=== PATIENT | female | born 1995 | race Caucasian/White ===

== ENCOUNTER 2023-11-27 08:22 | Outpatient (CLI) | payer BC, SELFPAY ==
--- NOTE | ~2023-11-27 | US_ITS ---
COMPLETE ABDOMINAL ULTRASOUND Ordering provider: William Ho APRN History: . R10.11 - Right upper quadrant pain . Comparison: None. FINDINGS: LIVER: Normal size and echotexture. No focal hepatic lesions or perihepatic fluid collections are melba ntified. Portal vein flow is normal. GALLBLADDER: Cholelithiasis. No evidence for sludge or pericholecystic fluid collections. The wall th ickness is 3.4 mm. A negative sonographic Back's sign was noted. BILIARY DUCTS: No evidence for intra or extrahepatic biliary dilation. Common bile duct measures 3 mm in diameter which is within normal limits. PANCREAS: Partially demonstrated with no definite abnormality. FREE FLUID: None. IMPRESSION: Cholelithiasis with slightly thickened wall of the gallbladder. Clinical evaluation for cholecystitis advised. Reviewed, dictated and finalized at location A. IMPRESSION: Cholelithiasis with slightly thickened wall of the gallbladder. Clinical evalua tion for cholecystitis advised.
== END 2023-11-27 08:23 | disposition home or self-care (01) ==
LOC: GOSHIMG 08:24
PROVIDERS: PCP Student in an Organized Health Care Education/Training Program; Visit Provider Student in an Organized Health Care Education/Training Program
DX: K80.20 Calculus of gallbladder without cholecystitis without obstruction (principal)
CPT/HCPCS: 76705

== ENCOUNTER 2023-11-27 08:51 | Outpatient (CLI) | payer BC, SELFPAY ==
[2023-11-27 13:48] LABS: Vitamin D 25 Hydroxy 29.4 ng/mL
[2023-11-27 13:59] LABS: Anion Gap 8 mmol/L (4-12); Blood Urea Nitrogen 10 mg/dL (7-17); Calcium 8.7 mg/dL (8.4-10.2); Carbon Dioxide 27 mmol/L (22-30); Chloride 104 mmol/L (98-107); Estimated Glomerular Filt Rate > 60; Glucose 84 mg/dL (65-110); Sodium 139 mmol/L (137-145)
[2023-11-27 15:10] LABS: Hemoglobin A1C 4.9 % (<5.7)
== END 2023-11-27 08:52 | disposition home or self-care (01) ==
LOC: ANHGOSHLAB 08:53
PROVIDERS: PCP Student in an Organized Health Care Education/Training Program; Visit Provider Student in an Organized Health Care Education/Training Program
DX: R63.1 Polydipsia (principal); R35.0 Frequency of micturition; R20.2 Paresthesia of skin; R53.83 Other fatigue
CPT/HCPCS: 36415; 80048; 82306; 82607; 83036

== ENCOUNTER 2023-12-31 17:30 | Emergency (ER) | payer BC, SELFPAY ==
--- NOTE | ~2023-12-31 | US_ITS ---
EXAMINATION: US abdomen limited DATE: 12/31/2023 19:27 INDICATION: Abdominal pain. Nausea and vomiting. TECHNIQUE: Multiple grayscale and Doppler ultrasound images of the abdomen were obtained. COMPARISON: Ultrasound 11/27/2023 FINDINGS: The visualized portions of the head of the pancreas are normal. The liver is normal without focal lesion. There is normal flow in main portal vein. The gallbladder is distended. No gallstones or gallbladder wall thickening. There is a positive sonographic Back's sign. The common duct is nor mal and measures 5 mm. IMPRESSION: 1. Gallbladder distention and positive sonographic Back sign, but no gallbladder wall thickening or visible gallstones. These findings are indeterminate for acute cholecystitis. Consider hepatobiliary scintigraphy. Reviewed, dictated and finalized at location A. IMPRESSION: 1. Gallbladder distention and positive sonographic Back sign, but no gallblad lana wall thickening or visible gallstones. These findings are indeterminate for acute cholecystitis. Consider hepatobiliary scintigraphy.
[2023-12-31 17:40] VITALS: BP 146/95; PULSE 84; RESP 20; TEMP 36.8; O2SAT 98
[2023-12-31 18:20] LABS: BEDSIDEPREGUCG Negative (Negative)
[2023-12-31 18:30] LABS: Basophils Absolute Auto 0.1 K/mm3 (0.0-0.1); Basophils Percent Auto 0.5 % (0.2-1.2); Eosinophils Percent Auto 0.3 % (0-4.4); Hematocrit 41.1 % (37.0-47.0); Hemoglobin 14.8 g/dL (12.0-15.0); Immature Granulocyte Absolute 0.03 K/mm3 (0.00-0.031); Immature Granulocyte Percent A 0.3 % (0-0.5); Lymphocytes Absolute Auto 1.49 K/mm3 (0.9-3.2); Lymphocytes Percent Auto 15.5 % (18.3-44.2); Mean Corpuscular Hemoglobin 31.1 pg (26-34); Mean Corpuscular Volume 86.3 fl (80-100); Mean Platelet Volume 12.2 fl (7.4-10.4); Monocytes Absolute Auto 0.6 K/mm3 (0.1-0.6); Monocytes Percent Auto 6.6 % (2.6-8.5); Neutrophils Absolute Auto 7.4 K/mm3 (1.3-6.7); Neutrophils Percent Auto 76.8 % (45.5-73.1); Platelet Count Result 245 k/mm3 (150-375); Red Blood Count 4.76 M/mm3 (4.2-5.4); Red Cell Distribution Width 12.3 % (11.5-14.5); White Blood Count 9.6 K/mm3 (4.5-10.0)
--- NOTE | 2023-12-31 18:41 | ED.ABDPAIN ---
HPI - Abdominal Pain General Chief Complaint: Abdominal Pain Stated Complaint: RUQ ABD PAIN, SURGERY SCHEDULED 01/10 Time Seen by Provider: 12/31/23 18:23 Source: patient Mode of arrival: ambulatory Limitations: no limitations History of Present Illness HPI narrative: Patient is a 28-year-old female who presents to the ED with report of RUQ abdominal pain. Patient reports history of cholelithiasis and is scheduled to have her gallbladder removed on 01/[address] Armstrong. States she has had recurrent episodes of right upper quadrant pain, however today pain has been more severe and longer lasting than usual. She had a turkey sandwich around noon today and developed the pain around 1:00 p.m.. Has been persistent since then. She tried taking ibuprofen without improvement. Reports nausea, vomiting. Denies fevers. Denies urinary complaints. Related Data Home Medications Medication Instructions Recorded Confirmed loratadine 10 mg tablet (Claritin) 10 mg PO DAILY 10/04/23 12/25/23 fluoxetine 20 mg capsule (Prozac) 20 mg PO DAILY 12/19/23 12/25/23 Allergies Allergy/AdvReac Type Severity Reaction Status Date / Time adhesive Allergy Unknown Unknown Verified 12/20/23 14:35 Review of Systems Review of Systems: All systems reviewed & are unremarkable except as noted in HPI. All systems reviewed & are unremarkable except as noted in HPI and below PMFSH Past Medical History Medical History Anxiety Asthma Nausea and vomiting Seasonal allergies Surgical History Surgical History History of tonsillectomy and adenoidectomy Family History Family History Mother Depression Sibling Depression Grandparent Cancer Diabetes mellitus Social History Social History Smoking status: Never smoker Do You Feel Safe in your Home?: Yes Lack of Transportation: No Lack of Food: Never True Current Housing: I Have Housing Concerned About Future Housing: No Difficulty Paying Gas/Electric Bills: Decline to Answer Difficulty Paying for Meds: YES Currently Unemployed: No Education: Associate Degree Difficulty w/ Childcare or Family Care: No Living arrangements: alone Exam Narrative: GENERAL: Mildly uncomfortable appearing, well-nourished, non-toxic, in no acute distress. HEAD: Normocephalic, atraumatic. RESPIRATORY: Airway patent, respirations nonlabored. Clear to auscultation bilaterally, no rales, rhonchi, wheezing. CARDIOVASCULAR: Regular rate and rhythm without murmurs, rubs, or gallops. ABDOMINAL: Soft, focal tenderness in right upper quadrant, no rebound. Nondistended. Normoactive BS. MUSCULOSKELETAL: Moves all extremities. No gross deformities. SKIN: Warm, dry, normal color. NEURO: A&O X3. Speech clear. PSYCHIATRIC: Appropriate mood and affect. Normal interaction. Course Vital Signs Vital signs: Vital Signs Temperature 98.3 F 12/31/23 17:40 Pulse Rate 84 12/31/23 17:40 Respiratory Rate 20 12/31/23 17:40 Blood Pressure 146/95 H 12/31/23 17:40 Pulse Oximetry 98 12/31/23 17:40 Oxygen Delivery Room Air 12/31/23 17:40 Temperature 98.6 F 12/31/23 19:40 Pulse Rate 77 12/31/23 19:40 Respiratory Rate 14 12/31/23 19:40 Blood Pressure 165/111 H 12/31/23 19:40 Pulse Oximetry 100 12/31/23 19:40 Oxygen Delivery Room Air 12/31/23 17:40 MDM - Abdominal Pain MDM Narrative Medical decision making narrative: Patient presented to ED with worsening right upper quadrant abdominal pain. History of cholelithiasis, scheduled for cholecystectomy in 11 days. Vital signs are stable upon arrival. Afebrile. Denies fevers at home. Patient is in no acute distress, though does appear mildly uncomfortable appearing. Cbc witho
[2023-12-31 18:44] LABS: Add Urine Microscopic? YES; Appearance Urine Turbid (Clear); Bacteria Urine 1+ /hpf; Bilirubin Urine Negative (Negative); Blood Urine Negative (Negative); Color Urine Yellow (Yellow); Glucose Urine UA Negative (Negative); Ketones Urine Negative (Negative); Leukocyte Esterase Ur 1+ LEU/UL (Negative); Need Manual Microscopic Reviewed; Nitrate Urine Negative (Negative); Non Pathogenic Casts 0-2; Protein Urine Trace mg/dL (Negative); Specific Grav Ur 1.026 (1.001-1.035); Squamous Epithelial Cell Urine Moderate /hpf (Few); WBC Urine 0-5 /hpf (0-3)
[2023-12-31 18:47] LABS: Alanine Aminotransferase 18 U/L (6-35); Albumin Level 4.3 g/dL (3.5-5.1); Alkaline Phosphatase 52 U/L (38-126); Anion Gap 9 mmol/L (4-12); Aspartate Amino Transferase 22 U/L (14-36); Bilirubin,Total 0.5 mg/dL (0.2-1.3); Blood Urea Nitrogen 9 mg/dL (7-17); Calcium 9.1 mg/dL (8.4-10.2); Carbon Dioxide 24 mmol/L (22-30); Chloride 105 mmol/L (98-107); Estimated Glomerular Filt Rate > 60; Glucose 114 mg/dL (65-110); Lipase 95 U/L (23-300); Potassium 3.7 mmol/L (3.4-5.0); Sodium 138 mmol/L (137-145)
[2023-12-31] MEDS: SODIUM CHLORIDE 0.9% IV 1,000 ML 999 ML IV CONT (18:50)
[2023-12-31] MEDS: MORPHINE SULFATE (*CRX) 4 MG/ML INJ IV PUSH (18:50)
[2023-12-31] MEDS: ONDANSETRON INJ 4 MG/2 ML VIAL IV PUSH (18:50)
[2023-12-31 19:40] VITALS: BP 165/111; PULSE 77; RESP 14; TEMP 37; O2SAT 100
[2023-12-31] MEDS: HYDROmorphone HCL INJ (*CRX) 1 MG/ML SYR 0.5 MG IV PUSH (20:05)
[2023-12-31] MEDS: FAMOTIDINE 20 MG/2 ML VIAL IV PUSH (20:32)
[2023-12-31] MEDS: HYDROcodone/acetaminophen (*CRX) 5-325 MG TABLET 1 TAB PO (21:17)
== END 2023-12-31 21:30 | disposition home or self-care (01) ==
PROVIDERS: Emergency Medicine; Emergency Provider Physician Assistant; PCP Student in an Organized Health Care Education/Training Program
DX: K80.20 Calculus of gallbladder without cholecystitis without obstruction (principal); J45.909 Unspecified asthma, uncomplicated; F41.9 Anxiety disorder, unspecified
CPT/HCPCS: 36415; 76705; 80053; 81001; 81025; 83690; 85025; 87086; 96361; 96374; 96375; 99284; A9270; J1171; J2270; J2405; J7030

== ENCOUNTER 2024-01-07 16:06 | Outpatient (CLI) | payer BC, SELFPAY ==
[2024-01-07 16:50] LABS: Amylase 69 U/L (30-110)
== END 2024-01-07 16:07 | disposition home or self-care (01) ==
LOC: ANHLAB 16:07
PROVIDERS: PCP Student in an Organized Health Care Education/Training Program; Visit Provider Surgery
DX: K80.10 Calculus of gallbladder with chronic cholecystitis without obstruction (principal); Z01.818 Encounter for other preprocedural examination
CPT/HCPCS: 36415; 82150

== ENCOUNTER 2024-01-11 00:46 | Day surgery (SDC) | payer BC, SELFPAY ==
[2024-01-04 14:11] VITALS: BMI 37.3
--- NOTE | 2024-01-04 14:17 | PC.NURSE ---
Report to the Outpatient Waiting Room, entrance under the green pavilion located off [facility], at time _0800_ on date _[id number]_. Planned Procedure Time: _1000_.? Time changes happen often and if your time is changed the preop area will call you the afternoon before. - You and your visitor will be asked to self-screen and do not enter if you have any COVID symptoms. Please call surgeon if you need to reschedule. - A mask is optional within the hospital at this time. Patients may have clear liquids (water, carbonated beverages, clear teas, apple juice) until 3 hours prior to surgery with a maximum of 20 ounces. - No food from midnight until time of surgery and no smoking Take only the following medications with a SIP of water on the morning of surgery: ___Fluoxetine and if needed pain med, nausea med and or inhaler if needed.____ DO NOT STOP ANY OF YOUR OTHER PRESCRIPTION MEDICATIONS PRIOR TO SURGERY EXCEPT THE FOLLOWING Medications to discontinue per physician None Please no make-up, nail arabic, hairspray, perfume, deodorant, or body powder the day of surgery.? No jewelry (including any body piercings) or valuables the day of surgery, leave them at home.? Please take a shower or bath the night before, or the morning of, surgery with an antibacterial soap.? Wear comfortable, loose fitting clothing.? - Jewelry must be removed prior to entering the operating room.? Rings and piercings that are not removed may be cut off. - The hospital will not accept responsibility for valuables.? - Please leave all valuables, including medications, at home the day of surgery. If you are going home after surgery, a licensed tractor sweeper driver must drive you home.? - NO public transportation without another adult if you receive anesthesia. - We recommend that an adult stay with you for 24 hours following discharge. - We also recommend that you do not drive, make important decision, drink alcoholic beverages, or take any drugs that were not prescribed by your health care provider for at least 24 hours after your discharge time. Follow any additional instructions given to you from your surgeon. Telephone instructions given to __Rocio__and asked if any additional questions and then verbalized understanding. Patient advised to call surgeon office or pre surgery nurse liaison [phone] if any additional questions.
[2024-01-11] VITALS (10 sets, daily range): BP systolic 112–133; BP diastolic 59–82; PULSE 72–98; RESP 12–19; TEMP 36.7; O2SAT 97–100; BMI 37.4
[2024-01-11 08:36] LABS: BEDSIDEPREGUCG Negative (Negative)
[2024-01-11] MEDS: ACETAMINOPHEN 500 MG TABLET 1000 MG PO (08:53)
[2024-01-11] MEDS: LACTATED RINGERS 1,000 ML 30 ML IV CONT ×2 (08:53→11:48)
[2024-01-11] MEDS: KETOROLAC 15 MG/ML VIAL (*BKC) IV PUSH ×2 (08:53→11:21)
--- NOTE | 2024-01-11 09:49 | P.PNAN_ITS ---
Anes - Initial Pre Proc Eval Procedure: Operation Date: 01/11/24 10:00 Proposed Procedures p Laparoscopic Cholecystectomy, Possible Open - Ezio Armstrong MD Date/Time: 01/11/24 09:49 Surgeon: Ezio Armstrong MD Pre Op Diagnosis: chronic cholecystitis secondary gallstones Patient Data Age: 28 Gender: F Height: 1.7 m Weight: 108.5 kg Last Vital Signs Temp 98.1 F 01/11/24 08:55 Pulse 81 01/11/24 08:55 BP 133/81 01/11/24 08:55 Pulse Ox 98 01/11/24 08:55 O2 Del Method Room Air 01/11/24 08:55 Allergies Allergy/AdvReac Type Severity Reaction Status Date / Time adhesive Allergy Unknown Unknown Verified 01/04/24 14:10 Home Medications Medication Instructions Recorded Confirmed Type albuterol sulfate 90 mcg/actuation 1 puff inhalation Q4H PRN 10/04/23 01/04/24 Rx aerosol inhaler shortness of breath or wheezing #8.5 grams loratadine 10 mg tablet (Claritin) 10 mg PO DAILY 10/04/23 01/04/24 History fluoxetine 20 mg capsule (Prozac) 20 mg PO DAILY 12/19/23 01/04/24 History hydrocodone 5 mg-acetaminophen 325 1 tablet PO Q6H PRN pain #15 tabs 12/31/23 01/04/24 Rx mg tablet ondansetron 4 mg disintegrating 4 mg PO Q8H PRN nausea and 12/31/23 01/04/24 Rx tablet vomiting #15 tabs Laboratory Tests 01/11/24 08:33 POC Urine HCG, Qual Negative (Negative) Patient hx anesthesia problems: post op nausea/vomiting Family hx anesthesia problems: none Results Review: All pre-operative results and documents have been reviewed as part of the pre- operative evaluation. [facility] Past Medical History Medical History Anxiety Asthma Nausea and vomiting Seasonal allergies Surgical History Surgical History History of tonsillectomy and adenoidectomy Family History Family History Mother Depression Sibling Depression Grandparent Cancer Diabetes mellitus Social History Social History Smoking status: Never smoker Alcohol intake: current Do You Feel Safe in your Home?: Yes Lack of Transportation: No Lack of Food: Never True Current Housing: I Have Housing Concerned About Future Housing: No Difficulty Paying Gas/Electric Bills: Decline to Answer Difficulty Paying for Meds: YES Currently Unemployed: No Education: Associate Degree Difficulty w/ Childcare or Family Care: No Living arrangements: with family Spiritual care concerns: No Anes - Eval Final PreProcedure Day of Procedure 01/11/24 09:49 Patient weight: obese Heart: regular rate and rhythm Lungs: clear to auscultation Airway: Mallampati scale class II Neurological: alert and oriented Last oral intake: >/= 8 hours ASA classification: II Emergent: no Anesthetic plan: proceed Anesthesia type and monitoring: general ETT and standard monitoring Results Review: All pre-operative results and documents have been reviewed as part of the pre- operative evaluation. Informed Consent: The patient's anesthetic plan and its attendant risks and benefits were discussed with the patient/family/POA. Questions were solicited and answers provided to the satisfaction of the patient/family/POA.
[2024-01-11] MEDS: SCOPOLAMINE 1 MG PATCH 1 PATCH TRANSDERM (10:00)
--- NOTE | 2024-01-11 10:16 | WPDHPUPDATE1 ---
History and Physical Update Update Date/Time: 01/11/24 10:16 History and Physical has been reviewed, including an updated exam of the patient. There are NO changes in the patient's condition. Risks, benefits, and alternatives have been discussed and questions answered. Patient agrees to proceed with procedure.
[2024-01-11] MEDS: ceFAZolin 2 GM/D5W 50 ML 2 GM/50 ML BAG IVPB (10:24)
[2024-01-11] MEDS: BUPivacaine HCL 0.5% PF 30 ML VIAL INFILTRATE (10:24)
[2024-01-11] MEDS: LIDO 1%/EPINEPHRINE 1:100,000 50 ML VIAL 30 ML INFILTRATE (10:24)
--- NOTE | 2024-01-11 11:40 | P.OP_ITS ---
Procedure Note - Detailed Date of Procedure 01/11/24 Pre-op Diagnosis Symptomatic cholelithiasis Post-op Diagnosis Same Procedure Performed Laparoscopic cholecystectomy Surgeon Ezio Armstrong MD Anesthesia General Indications Patient is a 28-year-old female who presents for plates of right upper quadrant abdominal pain especially worse after eating certain foods. Imaging shows at least 1 gallstone within the gallbladder. She presents now for elective laparoscopic cholecystectomy. Findings Patient had some minimal inflammation the gallbladder with only 1 small thin adhesion of the omentum to the gallbladder wall. The gallbladder wall was only minimally thickened. It was very supple and looked mostly normal. A gallstone was palpated within the gallbladder was sent to pathology Description of Procedure After informed consent was obtained patient brought to the operating room she was placed supine position and general endotracheal anesthesia was administered. The abdomen was then prepped and draped usual sterile fashion. A time-out was then performed correctly identifying the patient as well as procedure to be performed verifying she was given perioperative IV antibiotics. I then proceeded into the abdomen left upper quadrant utilizing a 5mm Optiview port. Once inside the abdomen insufflated to adequate pneumoperitoneum of 15mmHg of CO2. There were no adhesions around the area the umbilicus I placed a 5mm periumbilical trocar port and then placed an epigastric 10mm trocar port and 2 more right lateral subcostal 5mm trocar ports all under direct visualization. The gallbladder was visualized right upper quadrant. It is mildly distended. The gallbladder was held laparoscopic grasper and elevated over the right half liver towards the right shoulder. There was a single adhesion of the omentum to the gallbladder wall which was somewhat filmy and easily taken down with blunt dissection utilizing a [place] dissected. A 2nd grasper was then used to hold the gallbladder at the infundibulum. I then proceeded to dissect down on the infundibular wall of the gallbladder stripping down the visceral peritoneum. Identified the cystic duct and this was dissected out circumferentially. The cystic artery was identified and dissected out circumferentially as well. Posterior wall the gallbladder at the infundibulum dissected free liver into the critical view was obtained. I then placed 2 clips proximally cystic duct and 2 clips distally high on infundibular gallbladder. The cystic duct was then divided Endo Coco. In a similar fashion the cystic artery was then clipped an d divided as well. The gallbladder was resected off the liver electrocautery. Once it was completely free from liver is placed into an Endo-Catch bag and brought out through the epigastric port site. The gallbladder and the gallstone within were sent to pathology for examination. I then irrigated out the right upper quadrant the abdomen the gallbladder fossa with sterile saline solution. Hemostasis was excellent. I then aspirated the fluid from the right upper quadrant the abdomen from the pelvis. I then removed all the trocar ports under visualization all port sites appeared hemostatic. I then allowed the abdomen decompressed. I then closed the epigastric 10mm trocar port fascial defect utilizing 0 Vicryl suture. The skin edges in all the port sites were then approximated utilizing a running subcuticular 4 Monocryl suture. The incisions were then cleaned the skin glue sterile dressings were applied. The patient tolerated the procedure well no complications. All sponges, needles, and instrument counts were correct at the end procedure. EBL was _10__cc. The patient was awakened and taken to recovery in stable and satisfactory condition. Implants None Estimated Blood Loss 10 Drains No Packing No Complications No immediate complications Condition Stable Disposition PACU [facility] Billing Surgery - Charge Forward: Surgery Billing
[2024-01-11] MEDS: fentaNYL CITRATE INJ (*CRX) 100 MCG/2 ML VIAL 25 MCG IV PUSH ×8 (11:55→12:45)
[2024-01-11] MEDS: ONDANSETRON INJ 4 MG/2 ML VIAL IV PUSH (13:18)
[2024-01-11] MEDS: oxyCODONE HCL (*CRX) 5 MG TAB IR PO (13:22)
== END 2024-01-11 14:14 | disposition home or self-care (01) ==
PROVIDERS: PCP Student in an Organized Health Care Education/Training Program; Visit Provider Surgery
PROC: 0FT44ZZ Resection of Gallbladder, Percutaneous Endoscopic Approach (ICD-10-PCS; CPT 47562; principal; 2024-01-11 10:00)
DX: K80.10 Calculus of gallbladder with chronic cholecystitis without obstruction (principal); K66.0 Peritoneal adhesions (postprocedural) (postinfection); F41.9 Anxiety disorder, unspecified; J45.909 Unspecified asthma, uncomplicated; E66.9 Obesity, unspecified; Z68.37 Body mass index [BMI] 37.0-37.9, adult; Z79.51 Long term (current) use of inhaled steroids; Z79.891 Long term (current) use of opiate analgesic; Z98.890 Other specified postprocedural states; Z80.9 Family history of malignant neoplasm, unspecified
CPT/HCPCS: 47562; 88304; A9270; J0690; J1100; J1171; J1596; J1885; J2003; J2004; J2250; J2405; J2704; J3010; J7120

== ENCOUNTER 2024-06-04 08:09 | Outpatient (CLI) | payer BC, SELFPAY ==
--- OUTSIDE RECORDS SUMMARY | 2024-06-04 08:20 | XMS_ITS | Clinical Summary ---
Author Organization [facility] Address [address] [facility] [address] [place] [address] Care Team Providers Care Scratch Brusher Name Role Phone Gabriel Emerson DO Primary Care Provider [phone] Allergies Active Allergy Reactions Criticality Noted Date Comments Adhesive Rash Low 09/10/2012 Coconut Hives,Rash,Itching High 05/18/2023 Medications ibuprofen (MOTRIN) 800 mg tablet Take 1 Tablet (800 mg) by mouth every 8 hours as needed for Pain, Mild. 90 Tablet 1 4 Active FLUoxetine (PROzac) 20 mg capsule take 1 capsule by mouth once daily in the morning 4 Active fluconazole (Diflucan) 150 mg tablet Take 1 Tablet (150 mg) by mouth see administration instructions. Take one pill today; may repeat dose in 4 days if symptoms persist. 2 Tablet 4 Active Active Problems Problem Noted Date Diagnosed Date Elevated liver enzymes 08/02/2020 Gastroesophageal reflux disease 08/02/2020 Migraine with aura and witho ut status migrainosus, not intractable 06/02/2020 Generalized anxiety disorder 06/02/2020 IUD (intrauterine device) in place - Mirena 07/2018 Overview (01/21/2019): Due for removal 01/22/24 Morbid obesity with body mass index of 40.0-49.9 11/13/2018 MTHFR mutation 01/15/2018 Pain in thoracic spine 01/04/2010 Resolved Problems Problem Noted Date Diagnosed Date Resolved Date Spontaneous vaginal delivery 11/13/2018 12/24/2018 Encounter for induction of labor 11/12/2018 11/13/2018 Gestational hypertension 11/12/201810/2018 Threatened labor at term 10/31/201807/2018 Hyperemesis complicating pre gnancy, antepartum 04/30/2018 12/24/2018 Supervision of normal 04/02/2018 12/24/2018 Obesity in , antepartum 04/16/2013 12/24/2018 Decreased movements in third trimester 12/24/2018 Leukorrhea, vaginal, noninfectious 12/24/2018 uterine contractions in third trimester, antepartum 12/24/2018 Encounters Date Type Department Care Team Description 05/24/2024 External Device Data [facility] ABSTRACTION Provider, Abstract 05/23/2024 External Device Data [facility] ABSTRACTION Provider, Abstract 05/20/2024 External Device Data [facility] ABSTRACTION Provider, Abstract 05/06/2024 External Device Data [facility] ABSTRACTION Provider, Abstract 04/10/2024 External Device Data [facility] ABSTRACTION Provider, Abstract 04/09/2024 External Device Data [facility] ABSTRACTION Provider, Abstract 04/08/2024 External Device Data [facility] ABSTRACTION Provider, Abstract from Last 3 Months Immunizations Immunization Administration Dates Next Due (ADACEL/BOOSTRIX)(10 YR UP) TDAP VACCINE, 0.5ML, IM 09/24/2018,04/16/2009 (GARDASIL)(9-45 YRS) HUMAN PAPILLOMAVIRUS VACCINE, TYPES 6, 11, 16, 18, QUADRIVALENT (4VHPV), 3 DOSE, IM 07/07/2008,02/19/2008,11/14/2007 (HAVRIX/VAQTA)(19 YRS UP) HE PATITIS A VACCINE ADULT DOSAGE 1 ML IMM 09/10/2012 (INFANRIX)(6 WKS-6 YRS) DIPT HERIA, TETANUS TOXOIDS, AND ACCELLULAR PERTUSSIS VACCINE (DTAP), 0.5 ML IM 07/17/1996,05/22/1996,01/31/1996,12/03 (IPOL)(6 WKS AND UP) POLIOVI CLAIR VACCINE, INACTIVATED (IPV), 3 DOSE, SUBCUT OR IM 07/17/1996,05/22/1996,01/31/1996,12/03 (M-M-R II/PRIORIX)(12 MO UP) MEASLES, MUMPS AND RUBELLA VIRUS VACCINE, 0.5 ML IM/SUBCUT 12/11/2000,12/04/1996 (SPIKEVAX) (12 YRS UP PRIMAR Y SERIES) COVID-19 VACCINE - MRNA-1273(PF) 100 MCG/0.5 ML IM SUSP 06/24/2020,05/26/2020 (VARIVAX)(12 MOS UP)VARICELL A VIRUS VACCINE (PF) 0.5 ML, SUB CUT 10/12/2011,12/11/2000 HIB, Unspecified Formulation 07/17/1996, 05/22/1996,01/31/1996,12/03 Hepatitis A Vaccine 09/10/2012,10/12/2011 Hepatitis B Vaccine 07/07/2008,02/19/2008,2007 Human Immune Globulin IM 05/22/1996,01/31/1996,0 1995 INFLUENZA VACCINE QUADRIVALE NT 6 MOS UP PF IM 04/02/2018 Influenza Seasonal Unspecifi ed Formulation IM 12/18/2019,01/08/2012 Influenza Vaccine Split 3+ Yrs IM 12/24/2013 Meningococcal A Conjugate Vaccine IM 09/10/2012 Meningococcal ACWY Vaccine, Unspecified Formulation 09/10/2012,10/12/2011 Skin Test TB 04/15/2017, 6,12/22/2013,12/15,12/03/2013 Family History Medical History Relation Name Comments Healthy Brother Healthy Father Kaleb oneill High Cholesterol Father Kaleb oneill Cancer Maternal Grandmother Ken Liver c ancer, cervical Healthy Mother Healthy Sister Breast Cancer Neg Hx Colon Cancer Neg Hx Ovarian Cancer Neg Hx Relation Name Status Comments Brother Alive Father Kaleb oneill Alive Maternal Grandmother Ken Mother Alive Sister Alive Social History Tobacco Use Types Packs/Day Years Used Date Smoking Tobacco: Never Passive Smoke Exposure: Never Smokeless Tobacco: Never Tobacco Cessation:Counseling Given: No Alcohol Use Standard Drinks/Week Comments Yes 1 (1 standard drink = 0.6 oz pur e alcohol) Occasionally Feeling Safe Answer Date Recorded Within the last year, have y ou been afraid of your partner or ex-partner? No 11/12/2018 Within the last year, have y ou been humiliated or emotionally abused in other ways by your partner or ex-partner? No Within the last year, have y ou been kicked, hit, slapped, or otherwise physically hurt by your partner or ex-partner? No 11/12/2018 Within the last year, have y ou been raped or forced to have any kind of sexual activity by your partner or ex-partner? No 11/12/2018 Social Connections Answer Date Recorded In a typical week, how many times do you talk on the phone with family, friends, or neighbors? Three times a week 11/13/19 19 How often do you get togethe r with friends or relatives? Once a week 11/12/2018 How often do you attend chur or congregational services? Never 11/12/2018 Do you belong to any clubs o r organizations such as yazidi groups, unions, fraternal or athletic groups, or school groups? No 11/12/2018 How often do you attend meet ings of the clubs or organizations you belong to? Never 11/12/2018 Are you , , di vorced, , never , or living with a partner? Living with partner 11/12/2018 Financial Resource Strain Answer Date R ecorded How hard is it for you to pa y for the very basics like food, housing, medical care, and heating? Not hard at all 11/12/2018 Food Insecurity Answer Date Recorded Within the past 12 months, y ou worried that your food would run out before you got the money to buy more. Never true 11/13/19 19 Within the past 12 months, t he food you bought just didn't last and you didn't have money to get more. Never true 11/12/2018 Transportation Needs Answer Date Record ed In the past 12 months, has l ack of transportation kept you from medical appointments or from getting medications? No 10/18 In the past 12 months, has l ack of transportation kept you from meetings, work, or from getting things needed for daily living? No 11/12/2018 Education Answer Date Recorded What is the highest level of school you have completed or the highest degree you have received? Bachelor's degree (e.g., BA, AB, BS) 11/12/2018 Comments No Sex and Gender Information Value Date Recorded Sex Assigned at Not on file Legal Sex Female 4:30 AM PRODUCTION ASSOCIATE Gender Identity Not on file Sexual Orientation Not on file Occupation Industry Job Start Date Job End Date Not on file Not on file Not on file Not on file Last Filed Vital Signs Vital Sign Reading Time Taken Comments Blood Pressure 130/74 01/10/2024 9:03 AM CDT Pulse 82 05/18/2023 9:07 AM PRODUCTION ASSOCIATE Temperature 37.2 C (99 F) 05/18/2023 9:07 AM PRODUCTION ASSOCIATE Respiratory Rate 16 08/03/2022 4:26 PM CDT Oxygen Saturation 97% 05/18/2023 9:07 AM PRODUCTION ASSOCIATE Inhaled Oxygen Concentration - - Weight 109 kg (240 lb 6.4 oz) 01/10/2024 9:03 AM CDT Height 172.7 cm (5' 8 ) 01/10/2024 9:03 AM CDT Body Mass Index 36.55 01/10/2024 9:03 AM CDT Plan of Treatment Health Maintenance Due Date Last Done Comments INFLUENZA VACCINE (#1) 2023 , 12/18/2019, 04/02/2018, Additional history exists COVID-19 Vaccine (2023-2 5 season) 2023 06/24/2020, 05/26/2020 Preventative Visit- Commercial 03/19/2024 0 04/20/2023, 08/17/2020, 06/02/2020, Additional history exists CERVICAL CANCER SCREENING 04/20/20262023, 08/17/2020, 01/15/2018, Additional history exists DTAP/TDAP/TD VACCINES (6 - T d or Tdap) 09/24/2028 09/24/2018, 04/16/2009, 07/17/1996, Additional history exists HEPATITIS B VACCINES Completed 07/07/2008, 02/19/2008, 11/14/2007 HPV VACCINES Completed 07/07/2008, 05/2007, 11/14/2007 CHLAMYDIA SCREENING (ANNUAL) 11-24 YEARS Discontinued 04/02/2018, 01/15/2018 Procedures Procedure Name Priority Date/Time Associated Diagnosis Comments CERV/VAG CYTO AGE BASED SCREEN PAP W CT/NG, TRICH Routine 04/20/2023 11:40 AM PRODUCTION ASSOCIATE Well woman exam with routine gynecological exam Screening for cervical cancer Screening for STDs (sexually transmitted diseases) GC/CHLAMYDIA, URINE Routine 04/02/2018 10:34 AM PRODUCTION ASSOCIATE Encounter for supervision of other normal in first trimester from Last 3 Months or Most Recently Relevant to Health Maintenance Results * CERV/VAG CYTO AGE BASED SCREEN PAP W CT/NG, TRICH (04/20/2023 11:40 AM PRODUCTION ASSOCIATE) COMMENT (PAP): [facility] [place] Comment: This order for age-based cervical cancer and STI screening follows ACOG guidelines(PB 168, 140, FRK982). See individual assays for performing site location. CLINICAL INFORMATION [facility] Comment:None given LAST MENSTRUAL PERIOD [facility] [place] Comment:04/02/2023 PREV PAP: [facility] [place] Comment:NONE GIVEN PREV BX: [facility] [place] Comment:NONE GIVEN SOURCE [facility] [place] Comment:Endocervix ADEQUACY: [facility] [place] Comment: Satisfactory for evaluation. Endocervical/transformation zone component present. PAP INTERP [facility] [place] Comment: Cytology Results: Negative for intraepithelial lesion or malignancy. COMMENT (PAP TEST) [facility] Comment: This Pap test has been evaluated with computer assisted technology. NEEDLE MOLDER: [facility] Comment: KENNETH RODAS(ASCP) CT screening location: [address], [place] [address] [facility] Comment: EXPLANATORY NOTE: The Pap is a screening test for cervical cancer. It is not a diagnostic test and is subject to false negative and false positive results. It is most reliable when a satisfactory sample, regularly obtained, is submitted with relevant clinical findings and history, and when the Pap result is evaluated along with historic and current clinical information. C TRAC RNA NOT DETECTED NOT DETECTED [facility] [place] N.GONORRHOEAE RNA, TMA NOT DETECTED NOT DETECTED [facility] [place] COMMENT INFECTIOUS DISEASE [facility] [place] Comment: The analytical performance characteristics of this assay, when used to test SurePath(TM) specimens have been determined by [facility]. The modifications have not been cleared or approved by the FDA. This assay has been validated pursuant to the CLIA regulations and is used for clinical purposes. For additional information, please refer to https://Templafy.joiz/faq/LXH419 (This link is being provided for information/ educational purposes only.) TRICHOMONAS VAGINALIS,QUALITAT OSBALDO,PAP VIAL NOT DETECTED NOT DETECTED [facility] [place] Comment: The analytical performance characteristics of this assay have been determined by [facility]. The modifications have not been cleared or approved by the FDA. This assay has been validated pursuant to the CLIA regulations and is used for clinical purposes. For additional information, please refer to [email or web address].joiz/ faq/Trichomonastma (This link is being provided for information/ educational purposes only.) Test Performed at: [facility] [address] [facility] [place] [address] Danny Cheung MD TX2 Genital SWAB OF ENDOCERVIX / Unknown 04/20/2023 11:40 AM PRODUCTION ASSOCIATE 04/23/2023 7:01 AM PRODUCTION ASSOCIATE Dorene Lemos MD PATHOLOGY/CYTOLOGY ORDERABLES On license of [facility] Result [facility] [phone] [facility] [address] [facility] [place] [address] * GC/CHLAMYDIA, URINE (04/02/2018 10:34 AM PRODUCTION ASSOCIATE) CHLAMYDIA DNA AMPLIFICATION NOT DETECTED Not Detected 04/03/2018 3:47 AM PRODUCTION ASSOCIATE [facility] [employer] [facility] GC DNA AMPLIFICATION NOT DETECTED Not Detected 04/03/2018 3:47 AM PRODUCTION ASSOCIATE [facility] [employer] [facility] Urine URINE SPECIMEN / Unknown Collection / Unknown 04/02/2018 10:34 AM PRODUCTION ASSOCIATE 04/02/2018 10:43 PM PRODUCTION ASSOCIATE Narrative [facility] - 04/03/2018 3:47 AM PRODUCTION ASSOCIATE Results should not be used for the evaluation of suspected sexual abuse or for other medico-legal indications. The only legally accepted results are from culture. Results cannot be used to assess therapeutic success or failure since nucleic acids may persist following antimicrobial therapy. us Dorene Lemos MD URINE ORDERABLES COM Final Resul t [facility] [id number] [address] [place] [address] from Last 3 Months or Most Recently Relevant to Health Maintenance Insurance BCBS BLUE ACCESS/TRUE BLUE PPO CIGNA Advance Directives For more information, please contact: [phone] * Full Code (Latest Code Status on File) Date Activated Date Inactivated Comments 11/13/2018 1:22 PM 11/15/2018 2:14 PM * Full Code Date Activated Date Inactivated Comments 11/13/2018 11:03 AM 11/13/2018 1:22 PM * Full Code Date Activated Date Inactivated Comments 11/12/2018 12:52 PM 11/13/2018 11:03 AM * Full Code Date Activated Date Inactivated Comments 08/24/2018 8:52 PM 08/25/2018 12:53 AM Care Teams Scratch Brusher Relationship Specialty Start Date End Date Gabriel Emerson DO [address] [address] PCP - General Family Practice 05/18/23
--- OUTSIDE RECORDS SUMMARY | 2024-06-04 08:20 | XMS_ITS | Clinical Summary ---
Author Organization [facility] Address [address] [facility] [place] [address] Care Team Providers Care Art Education Professor Name Role Phone Unavailable Primary Care Provider Unavailabl e Source Comments [facility],non-owned Affiliates and Associated Physician Practices is amultiple site organization consisting of ambulatory clinics and hospital sitesin [place], [place], [place] and [place]. This disclosure is being madepursuant to the Care Everywhere program and may not contain all information available regarding this patient. Last updated [employer] Allergies Active Allergy Reactions Criticality Noted Date Comments Adhesive Sensitivity 04/15/2017 Social History Tobacco Use Types Packs/Day Years Used Date Smoking Tobacco: Never Assessed Sex and Gender Information Value Date Recorded Sex Assigned at Not on file Gender Identity Not on file Sexual Orientation Not on file Plan of Treatment Health Maintenance Due Date Last Done Comments PAP SMEAR 1995 HIV SCREENING 11/28/2010 HEPATITIS C SCREENING 11/24/2013 DTAP/TDAP/TD VACCINES (1 - Tdap) 11/28/2014 HEPATITIS B VACCINE (1 of 3 - 19+ 3-dose series) 11/28/2014 COVID-19 VACCINE (2023-2 5 season) 2023 INFLUENZA VACCINE (#1) 2023 DEPRESSION SCREENING 03/19/2024 ZOSTER VACCINE (1 of 2) 11/28/2045 HIB VACCINE Aged Out No longer eligi ble based on patient's age to complete this topic HPV VACCINE Aged Out No longer eligi ble based on patient's age to complete this topic MENINGOCOCCAL (Group B) VACC INE SHARED DECISION-MAKING Aged Out No longer eligibl e based on patient's age to complete this topic MENINGOCOCCAL GROUPS A/C/Y/W VACCINE Aged Out No longer eligible b ased on patient's age to complete this topic PNEUMOCOCCAL VACCINE Aged Out No long er eligible based on patient's age to complete this topic Rocio Oneill Personal/Famil y Self 1995
--- OUTSIDE RECORDS SUMMARY | 2024-06-04 08:20 | XMS_ITS | Encounter Summary ---
Author Organization [facility] Address [address] [place] [address] Care Team Providers Care District Sales Representative Name Role Phone Gabriel Emerson DO Primary Care Provider [phone] Encounter Details Date Type Department Care Team (Late st Contact Info) Description 04/19/2004 Outpatient Historical [facility] [address] [place] [address] Viky Palacios Social History Tobacco Use Types Packs/Day Years Used Date Smoking Tobacco: Never Assessed Comments Unknown Sex and Gender Information Value Date Recorded Sex Assigned at Not on file Legal Sex Female 4:30 AM STRATEGY MANAGER Gender Identity Not on file Sexual Orientation Not on file documented as of this encounter Plan of Treatment Not on file documented as of this encounter Visit Diagnoses Not on filedocumented in this encounter Additional Health Concerns Infection Onset Date Last Indicated Resolved Time R/O COVID-19 03/10/2021 03/10/2021 03/17/2021 1:16 AM STRATEGY MANAGER documented as of this encounter Care Teams District Sales Representative Relationship Specialty Start Date End Date Gabriel Emerson DO [address] [facility] [address] [place] [address] PCP - General Family Practice 05/18/23 documented as of this encounter
--- OUTSIDE RECORDS SUMMARY | 2024-06-04 08:20 | XMS_ITS | Encounter Summary ---
Author Organization [facility] Address [address] [place] [address] Care Team Providers Care Chrome Plater Helper Name Role Phone Gabriel Emerson DO Primary Care Provider [phone] Reason for Visit * Reason Comments Clinical Consult Before Scheduling Encounter Details Date Type Department Care Team (Late st Contact Info) Description 06/14/2023 Telephone [facility] Primary Care [facility] [address] [facility] [address] [place] [address] Gabriel Emerson DO [address] [facility] [address] [place] [address] Clinical Consult Before Scheduling Social History Tobacco Use Types Packs/Day Years Used Date Smoking Tobacco: Never Passive Smoke Exposure: Never Smokeless Tobacco: Never Alcohol Use Standard Drinks/Week Comments Yes 1 [...] 11/12/2018 How often do you attend chur ch or uatsdin services? Never 11/12/2018 Do you belong to any clubs o r organizations such as zoroastrian groups, unions, fraternal or athletic groups, or [...] on file Legal Sex Female 4:30 AM CO FOUNDER AND CHIEF STRATEGY OFFICER Gender Identity Not on file Sexual Orientation Not on file Occupation Industry Job Start Date Job End Date Not on file Not on file Not on file Not on file documented as of this encounter Miscellaneous Notes * Telephone Encounter - Kerrie Kaykay M - 06/15/2023 1:55 PM CDT Left VM for pt to call office to been seen in office or advised her to walk into nearest Urgent Care if symptoms worsen per Dr request. * Telephone Encounter - Ifrah Ley - 06/14/2023 3:52 PM CDT Copied from [facility] #[id number]. Topic: Symptomatic Care >> Jun 14, 2023 3:48 PM Ifrah Streeter wrote: Caller has new symptoms and is seeking care. Age Range/Symptom: Adult: 18+ - Other Symptoms: Possibly strept from her Call Notes: sore throat, low grade fever for 2 days would like something sent to the pharmacy. Please advise.... [id number] - [place] - [address] AT [address] [place] [place] [address] Caller Response Declined All Care Options, No Action Taken <<< Select Resolve Reason and Click Close CRM >>> documented in this encounter Plan of Treatment Not on file documented as of this encounter Visit Diagnoses Not on filedocumented in this encounter Care Teams Chrome Plater Helper Relationship Specialty Start Date End Date Gabriel Emerson DO [address] [facility] [address] [place] [address] PCP - General Family Practice 05/18/23 documented as of this encounter
--- OUTSIDE RECORDS SUMMARY | 2024-06-04 08:20 | XMS_ITS | Encounter Summary ---
Author Organization [facility] Address [address] [place] [address] Care Team Providers Care Educational Resource Center Teacher Name Role Phone Gabriel Emerson DO Primary Care Provider Reason for Visit * Reason Comments Provider Call Patient Communication Encounter Details Date Type Department Care Team (Late st Contact Info) Description 08/09/2023 Telephone [facility] Primary Care [facility] [address] [facility] [address] [place] [address] Gabriel Emerson DO [address] [facility] [address] [place] [address] Provider Call; Patient Communication Social History Tobacco Use Types Packs/Day Years [...] often do you attend chur ch or protestant services? Never 11/12/2018 Do you belong to any clubs o r organizations such as buddhism groups, unions, fraternal or athletic groups, or [...] on file Legal Sex Female 4:30 AM ETL ARCHITECT Gender Identity Not on file Sexual Orientation Not on file Occupation Industry Job Start Date Job End Date Not on file Not on file Not on file Not on file documented as of this encounter Miscellaneous Notes * Telephone Encounter - Dionne Tracy LPN - 08/09/2023 3:07 PM CDT Pt will upload new insurance card now to MM, pt also informed she is not a T2DM and rx may be denied. * Telephone Encounter - Gene Roche - 08/09/2023 3:04 PM CDT Copied from [facility] #[id number]. Topic: CPA Information Request - Patient Call Back >> August 09, 2023 3:04 PM Gene Jalloh wrote: Caller is returning phone call from clinic. Caller Name: Rocio Oneill Patient/Caregiver Callback Number: [phone] (home) Clinic Left Note In Chart Call Notes: Communicated information that is documented in the note. Patient wants call back * Telephone Encounter - Poly Cannon - 08/09/2023 3:01 PM CDT Spoke to pharmacist. Patient has a new insurance. A different BC/BS. Pharmacist will send a copy ofinsurance card. Patient is not a diabetic. Do you want send in a prescription for Zepbound? * Telephone Encounter - Dionne Tracy LPN - 08/09/2023 3:01 PM CDT Pending requested today * Telephone Encounter - Ifrah Velazquez - 08/09/2023 2:56 PM CDT Copied from [facility] #[id number]. Topic: Lhnzsxxl-Ze-Gzkmegjs Call >> August 09, 2023 2:52 PM Ifrah Stoll wrote: Caller is requesting to speak with Clinical Care Team. Caller Name: [facility] Callback Number: [phone] Clinician Type: Pharmacy - Requesting to Speak with Clinician Call Notes: tirzepatide (Mounjaro) 5 mg/0.5 mL Pen Injector Waiting for prior authorization. Please advise. documented in this encounter Plan of Treatment Not on file documented as of this encounter Visit Diagnoses Diagnosis Morbid obesity with body mass index of 40.0-49.9 (CMS/HCC)- Primary documented in this encounter Care Teams Educational Resource Center Teacher Relationship Specialty Start Date End Date Gabriel Emerson DO [address] [facility] [address] [place] [address] PCP - General Family Practice 05/18/23 documented as of this encounter
--- OUTSIDE RECORDS SUMMARY | 2024-06-04 08:20 | XMS_ITS | Continuity of Care Document ---
Author Organization [facility] Address [address] [place] [address] Phone Care Team Providers Care Vineyard Tender Name Role Phone Veto El MD Unavailable Unavailable Allergies, Adverse Reactions, Alerts Substance Reaction Status Criticality adhesive Active No Information Medications Medication Instructions Dosage Effective Dates (start - stop) Status Comments sertraline 50 mg tablet take 1 tablet by oral route every day 50 MG - Active Procedures Procedure Date OFFICE/OUTPATIENT VISIT EST OFFICE/OUTPATIENT VISIT NEW Advance Directives Directive Yes / No Effective Date File Name No Information Encounters Encounter Description Practice Location Reason(s) For Visit Diagnoses Date Provider Providers Copied on Encounter OFFICE/OUTPAT IENT VISIT EST [facility] , [address], [place], [address], [place] [phone] [facility] Maggy Sprain of medial collateral ligament of left knee, subsequent encounter 1 Nikko Laws. [address], [place], [place], [id number] , [place]. tel: [phone] OFFICE/OUTPAT IENT VISIT NEW [facility] , [address], [place], [address], [place] tel:[phone] [facility] Maggy Sprain of medial collateral ligament of left knee, initial encounterBody mass index [BMI]40.0-44.9 , adult 1 Nikko [place]. [address], [place], [place], [id number] , [place]. tel: [phone] Referring Provider: Lia Chi, [address], [place], [address]. tel:[phone] Family History Family Member Type Diagnosis Age At Onset Daughter Problem Alive and well Sister Problem Alive and well Brother Problem Alive and well Mother Problem Alive and well Father Problem hypertension Payers Payer name Insurance type Covered democrat ID Gabriela styles(s) [employer] E2 OT [id number] Social History Type Description Quantity Date Captured Comments Alcohol Use Details Unknown Caffeine Use Details Unknown Tobacco Use Status No Information Smoking Status No Information Sex Female Chief Complaint And Reason For Visit No Information Reason For Referral Reason For Referral No Information History Of Present Illness Encounter Date Complaint History Of Prese nt Illness No Information Functional Status Date Functional Assessmen t No Information Instructions Date Instruction Additional Danielr nico Giving encouragement to exercise Related to Body mass index [BMI]40.0-44.9, adult Assessments Type Assessment Date assessment Sprain of medial col lateral ligament of left knee, subsequent encounter Patient Care Teams Name Effective Dates (start - stop) Status Members No Information
[2024-06-04 13:21] LABS: Basophils Absolute Auto 0.1 K/mm3 (0.0-0.1); Basophils Percent Auto 1.2 % (0.2-1.2); Eosinophils Absolute Auto 0.1 K/mm3 (0-0.3); Eosinophils Percent Auto 1.2 % (0-4.4); Hematocrit 43.9 % (37.0-47.0); Hemoglobin 14.6 g/dL (12.0-15.0); Immature Granulocyte Absolute 0.03 K/mm3 (0.00-0.031); Immature Granulocyte Percent A 0.7 % (0-0.5); Lymphocytes Absolute Auto 1.29 K/mm3 (0.9-3.2); Lymphocytes Percent Auto 30.1 % (18.3-44.2); Mean Corpuscular HGB Conc 33.3 g/dl (32-36); Mean Corpuscular Hemoglobin 29.6 pg (26-34); Mean Platelet Volume 12.6 fl (7.4-10.4); Monocytes Absolute Auto 0.4 K/mm3 (0.1-0.6); Monocytes Percent Auto 8.9 % (2.6-8.5); Neutrophils Absolute Auto 2.5 K/mm3 (1.3-6.7); Neutrophils Percent Auto 57.9 % (45.5-73.1); Platelet Count Result 263 k/mm3 (150-375); Red Blood Count 4.93 M/mm3 (4.2-5.4); Red Cell Distribution Width 12.4 % (11.5-14.5); White Blood Count 4.3 K/mm3 (4.5-10.0)
[2024-06-04 13:55] LABS: Hemoglobin A1C 4.8 % (<5.7)
[2024-06-04 14:28] LABS: Vitamin D 25 Hydroxy 27.2 ng/mL
[2024-06-04 16:25] LABS: Alanine Aminotransferase 43 U/L (6-35); Albumin Level 4.4 g/dL (3.5-5.1); Alkaline Phosphatase 55 U/L (38-126); Anion Gap 8 mmol/L (4-12); Aspartate Amino Transferase 38 U/L (14-36); Bilirubin,Total 0.7 mg/dL (0.2-1.3); Blood Urea Nitrogen 12 mg/dL (7-17); Calcium 9.1 mg/dL (8.4-10.2); Carbon Dioxide 27 mmol/L (22-30); Chloride 103 mmol/L (98-107); Estimated Glomerular Filt Rate > 60; Glucose 73 mg/dL (65-110); Potassium 4.2 mmol/L (3.4-5.0); Sodium 138 mmol/L (137-145)
== END 2024-06-04 08:10 | disposition home or self-care (01) ==
LOC: ANHGOSHLAB 08:10
PROVIDERS: PCP Student in an Organized Health Care Education/Training Program; Visit Provider Student in an Organized Health Care Education/Training Program
DX: Z13.29 Encounter for screening for other suspected endocrine disorder (principal); R53.83 Other fatigue; R20.2 Paresthesia of skin; R63.1 Polydipsia; R35.0 Frequency of micturition
CPT/HCPCS: 36415; 80053; 82306; 82607; 83036; 84443; 85025